=== PATIENT | male | born 1970 | race Two or more races ===

== ENCOUNTER 2019-09-07 18:57 | Emergency (ER) | payer MEDICAID ==
[~2019-09-07] VITALS: Ht 172.7 cm; Wt 86.4 kg
[2019-09-07 18:59] VITALS: BP 180/93
--- NOTE | 2019-09-07 19:42 | NUR ---
pt walked back to room. gait steady. c/o r foot swelling and pain x2 days. r foot 1+ edema. 2+pedal pulses. pain on top and outer side of foot. no hx of blood clot or smoking. skin warmer on r foot. a&ox4 gcs 15. given blankets/call ma. to bathroom gait steady. as
--- NOTE | 2019-09-07 20:36 | NUR ---
recheck. pt nad. as
== END 2019-09-07 20:52 | disposition left against medical advice (07) ==
LOC: ED 20:20
DX: S39.013A Strain of muscle, fascia and tendon of pelvis, initial encounter (principal); M79.671 Pain in right foot; Z90.49 Acquired absence of other specified parts of digestive tract; X58.XXXA Exposure to other specified factors, initial encounter; Y93.89 Activity, other specified; Y92.89 Other specified places as the place of occurrence of the external cause; Y99.8 Other external cause status
CPT/HCPCS: 99283